=== PATIENT | male | born 1950 | race Caucasian/White ===

== ENCOUNTER 2018-07-04 07:54 | Emergency (ER) | payer OTHER ==
[~2018-07-04] VITALS: Ht 182.9 cm; Wt 81.6 kg
[2018-07-04 08:00] VITALS: BP 116/65
[2018-07-04] MEDS ORDERED: HYDROCODONE/APAP 5/325MG 1 EACH TABLET ONE (08:50)
[2018-07-04] MEDS ORDERED: HYDROCODONE/APAP 5/325MG 1 EACH TABLET PO ONE (09:00)
--- NOTE | 2018-07-04 10:15 | NUR ---
Patient discharged to home in stable condition. Written and verbal after care instructions given. Patient verbalizes understanding of instruction.
== END 2018-07-04 10:41 | disposition home or self-care (01) ==
LOC: ER 07:57
DX: S83.8X1A Sprain of other specified parts of right knee, initial encounter (principal); G89.29 Other chronic pain; F10.10 Alcohol abuse, uncomplicated; Y90.9 Presence of alcohol in blood, level not specified; Z96.652 Presence of left artificial knee joint; X58.XXXA Exposure to other specified factors, initial encounter; Y93.89 Activity, other specified; Y92.89 Other specified places as the place of occurrence of the external cause; Y99.8 Other external cause status
CPT/HCPCS: 29505; 73564; 99283; A4606; Z7610